=== PATIENT | male | born 1945 | race Caucasian/White ===

== ENCOUNTER 2020-01-27 08:51 | Outpatient (CLI) | payer MEDICARE, SELFPAY ==
[2020-01-27 09:34] VITALS: BMI 35.5
--- NOTE | 2020-01-27 10:11 | ECG_ITS ---
[facility] Test Date: 2020-01-27 Pat Name: Saeed Enamorado Department: Room: Gender: Male Learning Strategist: Yojana Arciniega : 1945 Requested By: Abigail Castellon Order Number: [id number] Erik MD: Abigail Castellon M.D. Interpretive Statements NAME OF STUDY: LEXISCAN SESTAMIBI STRESS TEST INDICATION: Chest Pain PROCEDURE: At the baseline, the EKG revealed atrial fibrillation with a controlled ventricular response rate of 64 beats per minute. Poor R wave progression. The baseline blood pressure was 132/75 mm Hg with a heart rate of 67 beats/min. Lexiscan was infused over a period of 20 seconds. A total of 0.4 milligrams of Lexiscan was infused. The stress phase was continued for a total of 5 minutes. Heart rate at the end of the stress phase was 73 bpm with a blood pressure 120/84 mm Hg. The EKG at the peak infusion revealed no significant ST-T wave changes. Sestamibi was injected 20 seconds after the Lexiscan infusion. Blood pressure at the end of the recovery phase was 119/82 mm Hg with a heart rate of 82 beats per minute. CONCLUSION: 1. Nonspecific ST-T changes with the LexiScan infusion. 2. No LexiScan induced chest pain or cardiac arrhythmia. 3. Normal blood pressure and heart rate response. 4. Sestamibi/sestamibi perfusion scan pending; see separate report. Electronically Signed On 01-30-2020 18:28:50 CDT by Abigail Castellon M.D. [id number]
--- NOTE | 2020-01-27 10:11 | NMCV_ITS ---
NM emelina perf SPECT r/s* [id number] Saeed Enamorado Age: 74 Gender: M : 1945 Exam Date: 01/27/2020 10:06 Ordering Phys: Abigail Castellon MD ([email or web address]) Technologist: SANTIAGO Lee Exam Location: [facility] Indications: DYSPNEA STRESS TEST Please see separate stress test report in [facility] for full findings IMAGE PROTOCOL Rest/Stress 1 Lexiscan Day Radiopharmaceutical Dose (mCi) Administration Site Administered by Rest: Tc-99m 11.0 IV SANTIAGO Lee Sestamibi Stress:Tc-99m 32.5 IV SANTIAGO Kapoor Sestamibi Rest: 27-Jan-2020 60 Discovery 630 Stress: 27-Jan-2020 30 Discovery 630 0.4mg Lexiscan. Images obtained in supine and prone position. SPECT RESULTS Technical Quality: Excellent Raw Data Analysis: Normal Image Corrections: No attenuation or motion correction applied Summed Stress Score: 3 Summed Rest Score: 0 Summed Difference Score: 3 PERFUSION FINDINGS Small sized perfusion abnormality of mid anterior and apical septal wall on supine stress images with improved tracer uptake on prone stress images. This is likely suggestive of attenuation artifact. FUNCTIONAL RESULTS (calculated via Gated SPECT) Stress Image LV EF (%): 71 Stress EDV (mL):106 TID: 1.03 Stress ESV (mL):31 FUNCTIONAL FINDINGS: The left ventricle is normal in size. Transient Ischemia Dilatation of 1. There is normal left ventricular systolic function. The left ventricular ejection fraction is normal with a value of 71%. There is normal left ventricular wall thickening. Normal end diastolic and end systolic volumes. IMPRESSIONS 1. Small sized perfusion abnormality of mid anterior and apical septal wall on supine stress images with improved tracer uptake on prone stress images. This is likely suggestive of attenuation artifact. 2. Overall left ventricular systolic function is normal without regional wall motion abnormalities. 3. The left ventricular ejection fraction is normal with a value of 71%. 4. No coronary ischemia based on this study. Abigail Castellon MD (Electronically Signed) Final Date: 30 January 2020 12:33 S
[2020-01-27 10:53] VITALS: BP 112/80; PULSE 80
[2020-01-27] MEDS: regadenoson 0.4 Mg/5 ml Syringe IVP (11:01)
== END 2020-01-27 08:52 | disposition home or self-care (01) ==
LOC: CDL 08:52
PROVIDERS: PCP Nurse Practitioner Family; Visit Provider Internal Medicine Cardiovascular Disease
DX: R06.00 Dyspnea, unspecified (principal); I48.91 Unspecified atrial fibrillation; R07.9 Chest pain, unspecified
CPT/HCPCS: 78452; 93017; A9500; J2785

== ENCOUNTER → 2021-04-23 13:51 | Outpatient (BNVA) | payer MEDICARE, SELFPAY | PROVIDERS: PCP Nurse Practitioner Family; Visit Provider Nurse Practitioner Family | DX: E78.2 Mixed hyperlipidemia (principal); E11.9 Type 2 diabetes mellitus without complications; I48.91 Unspecified atrial fibrillation | CPT/HCPCS: 80053; 80061; 83036; 87522 ==

== ENCOUNTER → 2021-05-28 15:37 | Outpatient (BNVA) | payer MEDICARE, SELFPAY | PROVIDERS: PCP Nurse Practitioner Family; Visit Provider Nurse Practitioner Family | DX: Z72.51 High risk heterosexual behavior (principal); Z11.3 Encounter for screening for infections with a predominantly sexual mode of transmission | CPT/HCPCS: 86592; 87491; 87530; 87591; 87806 ==

== ENCOUNTER → 2021-09-30 16:00 | Outpatient (BNVA) | payer MEDICARE, SELFPAY | PROVIDERS: PCP Nurse Practitioner Family; Visit Provider Nurse Practitioner Family | DX: Z12.11 Encounter for screening for malignant neoplasm of colon (principal); Z12.5 Encounter for screening for malignant neoplasm of prostate; Z00.00 Encounter for general adult medical examination without abnormal findings; Z13.31 Encounter for screening for depression | CPT/HCPCS: 82270; G0103 ==

== ENCOUNTER → 2022-04-24 11:28 | Outpatient (BNVA) | payer MEDICARE, SELFPAY | PROVIDERS: PCP Nurse Practitioner Family; Visit Provider Internal Medicine | DX: G47.33 Obstructive sleep apnea (adult) (pediatric) (principal); D64.9 Anemia, unspecified; R06.00 Dyspnea, unspecified | CPT/HCPCS: 80053; 82607; 82746; 83550; 84443; 85025 ==

== ENCOUNTER 2022-07-14 20:00 | Outpatient (CLI) | payer MEDICARE, SELFPAY | END 2022-07-14 20:01 | disposition home or self-care (01) | LOC: SLEEP 07-15 05:42 | PROVIDERS: PCP Nurse Practitioner Family; Visit Provider Internal Medicine | DX: G47.33 Obstructive sleep apnea (adult) (pediatric) (principal) | CPT/HCPCS: 95810 ==

== ENCOUNTER 2022-07-31 07:25 | Outpatient (CLI) | payer MEDICARE, SELFPAY ==
[2022-07-31 07:51] VITALS: BMI 33.5
--- NOTE | 2022-07-31 07:53 | ECG_ITS ---
[facility] Test Date: 2022-07-31 Pat Name: Saeed Enamorado Department: Room: Gender: Male Supervisor [employer]: Crystal Esquivel : 1945 Requested By: Matthias Hu Order Number: [id number] Valencia MD: Abigail Castellon M.D. Interpretive Statements NAME OF STUDY: LEXISCAN SESTAMIBI STRESS TEST INDICATION: Chest Pain, Dyspnea on exertion PROCEDURE: At the baseline, the blood pressure was 111/67 mm Hg with a heart rate of 76 bpm. The electrocardiogram showed atrial fibrillation, normal axis. No significant ST-T wave changes. ??? The Lexiscan was infused over a period of 20 seconds. A total of 0.4 milligrams of Lexiscan was infused. The stress phase was continued for a total of 5 minutes. Heart rate at the end of the stress phase was 77 bpm with a blood pressure of 98/66 mm HgThe EKG at the peak infusion revealed no significant changes. ??? Sestamibi was injected 20 seconds after the Lexiscan infusion. ??? Blood pressure at the end of the recovery phase was 100/73 mm Hg with a heart rate of 78 beats per minute. ??? CONCLUSION: 1. No significant EKG changes with the LexiScan infusion. 2. No LexiScan induced chest pain or cardiac arrhythmia. 3. Normal blood pressure and heart rate response. 4. Sestamibi/sestamibi perfusion scan pending; see separate report. Electronically Signed On 08-02-2022 12:30:21 WAREHOUSE RECEIVING CLERK by Abigail Castellon M.D. [id number]
--- NOTE | 2022-07-31 07:54 | NMCV_ITS ---
NM emelina perf SPECT r/s* [id number] Saeed Enamorado Age: 77 Gender: M : 1945 Exam Date: 07/31/2022 08:40 Ordering Phys: Matthias Hu MD Technologist: SANTIAGO Kapoor Exam Location: [facility] Indications: SOB STRESS TEST Please see separate stress test report in [facility] for full findings IMAGE PROTOCOL Rest/Stress 1 Lexiscan Day Radiopharmaceutical Dose (mCi) Administration Site Administered by Rest: Tc-99m 10.9 IV SANTIAGO Kapoor Sestamibi Stress:Tc-99m 32.7 IV SANTIAGO Kapoor Sestamibi Rest: 31-Jul-2022 60 Discovery 630 Stress: 31-Jul-2022 30 Discovery 630 0.4mg Lexiscan. Images obtained in supine and prone position. SPECT RESULTS Technical Quality: Good Raw Data Analysis: Normal Image Corrections: No attenuation or motion correction applied Summed Stress Score: 0 Summed Rest Score: 0 Summed Difference Score: 0 PERFUSION FINDINGS SPECT images demonstrate homogeneous tracer distribution throughout the myocardium. FUNCTIONAL RESULTS (calculated via Gated SPECT) Stress Image LV EF (%): 73 Stress EDV (mL):105 TID: 1 Stress ESV (mL):28 FUNCTIONAL FINDINGS: There is normal left ventricular systolic function. IMPRESSIONS 1. Myocardial perfusion imaging is normal with no evidence of ischemia 2. LV systolic function is normal. Toño Conway MD (Electronically Signed) Final Date: 05 August 2022 11:27 S
[2022-07-31] MEDS: regadenoson 0.4 Mg/5 ml Syringe IVP (09:15)
[2022-07-31 09:20] VITALS: BP 100/73; PULSE 78
== END 2022-07-31 07:26 | disposition home or self-care (01) ==
PROVIDERS: PCP Nurse Practitioner Family; Visit Provider Internal Medicine
DX: R06.02 Shortness of breath (principal); R07.9 Chest pain, unspecified; R06.09 Other forms of dyspnea
CPT/HCPCS: 36415; 78452; 93017; 96374; A9500; J2785

== ENCOUNTER → 2022-08-11 15:36 | Outpatient (BNVA) | payer MEDICARE, SELFPAY | PROVIDERS: PCP Nurse Practitioner Family; Visit Provider Nurse Practitioner Family | DX: I48.91 Unspecified atrial fibrillation (principal); Z79.01 Long term (current) use of anticoagulants; Z87.891 Personal history of nicotine dependence | CPT/HCPCS: 99213 ==

== ENCOUNTER → 2023-02-06 11:32 | Outpatient (BNVA) | payer MEDICARE, SELFPAY | PROVIDERS: PCP Nurse Practitioner Family; Visit Provider Internal Medicine Cardiovascular Disease | DX: I48.91 Unspecified atrial fibrillation (principal); Z86.79 Personal history of other diseases of the circulatory system; E78.2 Mixed hyperlipidemia; Z98.890 Other specified postprocedural states; E11.9 Type 2 diabetes mellitus without complications; Z87.891 Personal history of nicotine dependence; Z79.01 Long term (current) use of anticoagulants | CPT/HCPCS: 99214 ==

== ENCOUNTER → 2023-08-06 09:36 | Outpatient (BNVA) | payer MEDICARE, SELFPAY | PROVIDERS: PCP Nurse Practitioner Family; Visit Provider Nurse Practitioner Family | DX: I48.91 Unspecified atrial fibrillation (principal); Z79.01 Long term (current) use of anticoagulants; Z87.891 Personal history of nicotine dependence | CPT/HCPCS: 99213 ==

== ENCOUNTER → 2023-09-29 08:59 | Outpatient (BNVA) | payer MEDICARE, SELFPAY | PROVIDERS: PCP Clinical Nurse Specialist Adult Health; Visit Provider Clinical Nurse Specialist Adult Health | DX: G47.33 Obstructive sleep apnea (adult) (pediatric) (principal); E78.2 Mixed hyperlipidemia; E11.9 Type 2 diabetes mellitus without complications | CPT/HCPCS: 80053; 80061; 83036; 85025 ==

== ENCOUNTER → 2023-12-14 10:17 | Outpatient (BNVA) | payer MEDICARE, SELFPAY | PROVIDERS: PCP Clinical Nurse Specialist Adult Health; Visit Provider Nurse Practitioner Family | DX: I48.91 Unspecified atrial fibrillation (principal); Z87.891 Personal history of nicotine dependence; Z79.01 Long term (current) use of anticoagulants | CPT/HCPCS: 99213 ==

== ENCOUNTER → 2024-03-22 11:49 | Outpatient (BNVA) | payer MEDICARE, SELFPAY | PROVIDERS: PCP Clinical Nurse Specialist Adult Health; Visit Provider Nurse Practitioner | DX: R39.9 Unspecified symptoms and signs involving the genitourinary system (principal) | CPT/HCPCS: 81000; 87086 ==

== ENCOUNTER → 2024-07-11 13:56 | Outpatient (BNVA) | payer MEDICARE, SELFPAY | PROVIDERS: PCP Clinical Nurse Specialist Adult Health; Visit Provider Internal Medicine | DX: I48.91 Unspecified atrial fibrillation (principal); Z86.79 Personal history of other diseases of the circulatory system; E78.2 Mixed hyperlipidemia; Z98.890 Other specified postprocedural states; E11.9 Type 2 diabetes mellitus without complications; Z79.01 Long term (current) use of anticoagulants; Z87.891 Personal history of nicotine dependence | CPT/HCPCS: 99214 ==

== ENCOUNTER 2024-09-19 07:12 | Outpatient (CLI) | payer MEDICARE, SELFPAY ==
--- NOTE | 2024-09-19 07:17 | MR_ITS ---
WS: [id number] MRI BRAIN WITH HIGH-RESOLUTION IMAGING THROUGH THE INTERNAL AUDITORY CANALS WITHOUT AND WITH CONTRAST HISTORY: DIZZINESS/?IAC MASS COMPARISON: 10/29/2012 TECHNIQUE: Multiplanar, multisequence imaging is performed through the brain. Additional 3 mm imaging performed in multiple planes through the internal auditory canal. Postcontrast imaging with 20 ml's of MultiHance. No acute intracranial hemorrhage, midline shift, edema or mass effect. Moderate cerebral and cerebellar atrophy. Atrophy as progressed since the prior examination from 2012. No infarcts. No significant amount of small vessel disease. Mild hippocampal atrophy, RIGHT greater than LEFT. Ventricles and extra-axial spaces are normal. No inferior displacement of cerebellar tonsils. Clivus and pituitary gland are normal. Internal and external auditory canals: Unremarkable. Cranial nerves VII and VIII complexes: Unremarkable. No enhancement or mass. Cerebellopontine angles: Normal. Paranasal sinuses: No air-fluid levels or significant mucoperiosteal thickening. Mastoid air cells: Small amount of fluid in the mastoid air cells, bilateral. Calvarium and scalp: Normal. Visualized [place] and dural venous sinuses demonstrate no abnormality. MR/MR iac's wo/w con* [id number] IMPRESSION: 1. No acute infarct. 2. Normal appearance of the internal and external auditory canals. 3. Normal cerebellopontine angles. 4. Moderate cerebral and cerebellar atrophy with mild progression since 2012. 5. Minimal small vessel disease.
[2024-09-19] MEDS: gadobenate dimeglumine 20 mL vial IV (08:00)
--- NOTE | 2024-09-19 14:54 | XR_ITS ---
WS: [id number] Exam: XR chest 2V* [id number] Date/Time of Exam: 09/19/2024 2:58 PM Reason For Exam: Cough Comparison 06/27/2012. The lungs are fully expanded and clear. Normal cardiomediastinal silhouette. Bony structures are unremarkable. XR/XR chest 2V* [id number] IMPRESSION: 1. Negative chest. No change.
== END 2024-09-19 07:13 | disposition home or self-care (01) ==
PROVIDERS: PCP Family Medicine; Visit Provider Otolaryngology
DX: R42 Dizziness and giddiness (principal); R05.9 Cough, unspecified; G31.89 Other specified degenerative diseases of nervous system; H74.8X3 Other specified disorders of middle ear and mastoid, bilateral; E55.9 Vitamin D deficiency, unspecified; Z00.00 Encounter for general adult medical examination without abnormal findings; Z51.81 Encounter for therapeutic drug level monitoring; Z13.6 Encounter for screening for cardiovascular disorders; R35.0 Frequency of micturition; R53.81 Other malaise; R53.83 Other fatigue; E53.8 Deficiency of other specified B group vitamins; E11.9 Type 2 diabetes mellitus without complications
CPT/HCPCS: 70553; 71046; 80053; 80061; 81000; 82306; 82533; 82607; 83036; 84153; 84443; 85025; 86141; A9577

== ENCOUNTER → 2025-01-02 12:24 | Outpatient (BNVA) | payer MEDICARE, SELFPAY | PROVIDERS: PCP Family Medicine; Visit Provider Family Medicine | DX: E55.9 Vitamin D deficiency, unspecified (principal) | CPT/HCPCS: 82306 ==

== ENCOUNTER → 2025-01-09 15:10 | Outpatient (BNVA) | payer MEDICARE, SELFPAY | PROVIDERS: PCP Family Medicine; Visit Provider Internal Medicine | DX: I48.91 Unspecified atrial fibrillation (principal); Z79.01 Long term (current) use of anticoagulants; E78.5 Hyperlipidemia, unspecified; E11.9 Type 2 diabetes mellitus without complications; Z98.890 Other specified postprocedural states; Z86.79 Personal history of other diseases of the circulatory system | CPT/HCPCS: 99214 ==